=== PATIENT | female | born 1955 | race Caucasian/White ===

== ENCOUNTER 2016-06-27 09:38 | Emergency (ER) | payer MEDICARE, MEDICAID ==
[~2016-06-27] VITALS: Ht 154.9 cm; Wt 82.0 kg
[~2016-06-27 09:38] MED LIST: AMLO2.5T PO; ASPI-110 PO; BLOOMIS; CELE1CAP11 PO; GLIP-157 PO; MECL-62 PO; MELO7.5T4 PO; METF1000 PO; METF500T PO; PRAV40TA2 PO; VENTAER INH
[2016-06-27 09:40] VITALS: BP 176/99; PULSE 113; RESP 16; TEMP 97.9; O2SAT 98
[2016-06-27] MEDS ORDERED: IBUP800T23 PO (10:14)
[2016-06-27] MEDS ORDERED: ROBA500T PO (10:14)
[2016-06-27] MEDS ORDERED: KETOROLAC TROMETHAMINE 60 MG/2 ML (IM) VIAL IM ONE (10:15)
[2016-06-27] MEDS ORDERED: ORPHENADRINE INJ 60 MG/2 ML AMP IM ONE (10:15)
--- NOTE | 2016-06-27 10:15 | PD ---
HPI Chief Complaint: Pain: Acute or Chronic Time Seen by Provider: 10:12 Travel History International Travel<30 days: No Contact w/Intl Traveler<30days: No Traveled to known affect area: No History of Present Illness HPI 61-year-old female presents to the emergency Department with complaint of low back pain since after lifting up her 55 pound nephew. She has history of low back pain. She denies encopresis, incontinence, saddle anesthesias. Denies fever, chills, nausea, vomiting, abdominal pain. Denies paresthesias loss of sensation, decreased range of motion, decreased strength to bilateral lower extremities. Denies IV drug use, cancer. Has not taken any medications or tried any treatments to alleviate her symptoms. Pain is worse on the right. Pain radiates down the back of her right leg. Pain is aggravated with palpation, ambulation, movement. She is also complaining of right shoulder pain which is chronic and requesting a steroid injection, which she says she is due for. Primary care provider is Dr. Stephenson. No known allergies. History of asthma and diabetes. No other modifying factors or associated signs and symptoms. PFSH Past Medical History Hx Anticoagulant Therapy: Yes (ASA) Blood Disorders: No Heart Rhythm Problems: No Cancer: No Cardiovascular Problems: Yes (HTN) High Cholesterol: Yes Chest Pain: Yes Congestive Heart Failure: No Diabetes: Yes Diminished Hearing: No Endocrine: Yes Hypertension: Yes Immune Disorder: No Musculoskeletal: Yes (RIGHT ARM ARTHRITIS ) Neurologic: Yes (VERTIGO THIS VISIT) Psychiatric: No Reproductive: No Respiratory: No Thyroid Disease: No ?: Not Past Surgical History Hysterectomy: Yes Social History Alcohol Use: No Tobacco Use: No Substance Use: No Allergies-Medications (Allergen,Severity, Reaction): Coded Allergies: No Known Allergies (Unverified , 06/19/16) Reported Meds & Prescriptions Reported Meds & Active Scripts Active Ibuprofen 800 Mg Tab 800 Mg PO Q6HR PRN Robaxin (Methocarbamol) 500 Mg Tab 500 Mg PO QID PRN Celecoxib 50 Mg Cap 50 Mg PO BID Meloxicam 7.5 Mg Tab 7.5 Mg PO DAILY Blood Pressure Monitor (Blood Pressure Monitoring) 1 Mis Mis 1 Ea .ROUTE DIRECTED Meclizine (Meclizine HCl) 25 Mg Tab 25 Mg PO Q8H PRN Ventolin Hfa 18 GM Inh (Albuterol Sulfate) 90 Mcg/Act Aer 2 Puff INH Q4-6H PRN Pravastatin 40 Mg Tab 40 Mg PO DAILY Glipizide XL (Glipizide) 5 Mg Marko 5 Mg PO DAILY Take with breakfast or first main meal of the day Metformin (Metformin HCl) 1,000 Mg Tab 1,000 Mg PO BIDPC With meals Metformin (Metformin HCl) 500 Mg Tab 500 Mg PO AC BREAKFAST With a meal Aspirin 81 (Aspirin) 81 Mg Tabdr 81 Mg PO DAILY Amlodipine (Amlodipine Besylate) 2.5 Mg Tab 2.5 Mg PO DAILY Review of Systems Except as stated in HPI: all other systems reviewed are Neg Physical Exam Narrative GENERAL: Well-nourished, well-developed female patient, in no acute distress SKIN: Warm and dry. HEAD: Atraumatic. Normocephalic. EYES: Pupils equal and round. No scleral icterus. No injection or drainage. ENT: Mucosa pink and moist. Airway patent. NECK: Trachea midline. CARDIOVASCULAR: Regular rate. RESPIRATORY: No accessory muscle use. GASTROINTESTINAL: Rounded. MUSCULOSKELETAL: Bilateral lower extremities supple and non-tense with 2+ pedal pulses and sensory intact; with full range of motion and 5/5 strength. DTRs 2+. Active dorsiflexion and extension of bilateral feet. Bilateral straight leg raise is positive for low back pain; right worse than left. Sitting up in bed at 90. No obvious deformities. No clubbing. No cyanosis. No edema. BACK: No midline point tenderness on palpation of the lumbar, thoracic, or cervical spine. Tenderness on palpation of bilateral iliosacral area; right worse than left. No obvious deformities. NEUROLOGICAL: Awake and alert. Oriented 3. No obvious cranial nerve deficits. Motor grossly within normal limits. Normal speech. Moves all extremities. 5/5 strength to all extremities. Sensory intact. PSYCHIATRIC: Appropriate mood and affect; insight and judgment normal. Data Data Last Documented VS Vital Signs Date Time Temp Pulse Resp B/P Pulse Ox O2 Delivery O2 Flow Rate FiO2 06/27/16 09:40 97.9 113 16 176/99 98 Orders Ketorolac Inj (Toradol Inj) (06/27/16 10:15) Orphenadrine Inj (Norflex Inj) (06/27/16 10:15) MDM Medical Decision Making Medical Screen Exam Complete: Yes Emergency Medical Condition: Yes Medical Record Reviewed: Yes Differential Diagnosis Low back strain, sciatica, acute exacerbation of chronic low back pain, muscle spasms Narrative Course 61-year-old female physical examination consistent with low back strain and right-sided sciatica. Heart recheck on physical exam is approximately 90-100 bpm. Toradol and Norflex administered in the ER. Ibuprofen and Robaxin prescribed for home. Patient is medically cleared and stable for discharge. Discussed reasons to return to the emergency department. Instructed patient to follow up with primary care provider. Patient agrees with treatment plan. The patients vital signs are stable and the patient is stable for outpatient follow- up and treatment. Patient discharged home, stable and in no acute distress. Diagnosis Primary Impression: Low back strain Qualified Code: S39.012A - Low back strain, initial encounter Additional Impression: Sciatica Qualified Code: M54.31 - Sciatica of right side Referrals: Primary Care Physician Patient Instructions: General Instructions, Low Back Strain (ED), Sciatica (ED) Departure Forms: Tests/Procedures, Work Release Enter return to work date: Jul 01, 2016 Additional Instructions: Tylenol or ibuprofen as directed and as needed for pain Robaxin as prescribed and as needed for muscle spasms Heating pad and/or ice to affected area to reduce pain Avoid aggravating activities; increase activity as tolerated Follow-up with primary care provider Return to emergency department immediately with worsening of symptoms Med/Other Pt SpecificInfo: Prescription(s) given Scripts Ibuprofen 800 Mg [id number] Mg PO Q6HR PRN (PAIN) #30 TAB Ref 0 Prov:Avelina Rouse 06/27/16 Methocarbamol (Robaxin)500 Mg [id number] Mg PO QID PRN (MUSCLE SPASM) #30 TAB Ref 0 Prov:Avelina Rouse 06/27/16 Disposition: 01 DISCHARGE HOME Condition: Stable Avelina Rouse Jun 27, 2016 10:15 Avelina Rouse Jun 27, 2016 10:15
[2016-07-05] MEDS ORDERED: METF500T PO (13:05)
[2016-07-05] MEDS ORDERED: METF1000 PO (13:05)
[2016-07-16] MEDS ORDERED: GLIP-157 PO (14:38)
[2016-07-16] MEDS ORDERED: TYLE325T PO (14:42)
[2016-07-31] MEDS ORDERED: TRIA40P I-ARTICULR (10:28)
[2016-07-31] MEDS ORDERED: [UNRECOGNIZED DRUG - CODE] (10:28)
[2016-08-13] MEDS ORDERED: FLUC150T PO (14:31)
[2016-08-16] MEDS ORDERED: CELE1CAP11 PO (15:19)
[2016-08-25] MEDS ORDERED: AMLO2.5T PO (15:33)
[2016-10-15] MEDS ORDERED: METF500T PO (12:57)
[2016-10-15] MEDS ORDERED: METF1000 PO (12:57)
== END 2016-06-27 11:02 | disposition home or self-care (01) ==
LOC: NEPB 09:38
DX: S39.012A Strain of muscle, fascia and tendon of lower back, initial encounter (principal); M54.31 Sciatica, right side; E78.00 Pure hypercholesterolemia, unspecified; I10 Essential (primary) hypertension; E11.9 Type 2 diabetes mellitus without complications; Z79.4 Long term (current) use of insulin; Z79.82 Long term (current) use of aspirin
CPT/HCPCS: 96372; 96374; 99283; J1885; J2360

== ENCOUNTER → 2017-05-25 | Emergency (ER) | payer MEDICARE, OTHER ==
[~2017-05-25] VITALS: Ht 154.9 cm; Wt 81.8 kg
[~2017-05-25] MED LIST changes: -ASPI-110 PO; +ASPI1TAB57 PO; +BLOO1KIT; -BLOOMIS; +MAGICADU2 SWISH-SWAL; +MELO7.5T27 PO; -MELO7.5T4 PO; +OMEP10CA PO; +ROBA500T PO; +TYLE325T PO; +VALA500T PO
[2017-05-25 13:30] VITALS: BP 183/100; PULSE 117; RESP 20; TEMP 99; O2SAT 97
[2017-05-25 14:24] LABS: BILIRUBIN, URINE NEG (NEG); BLOOD, URINE NEG (NEG); GLUCOSE,URINE 150 mg/dL (NEG); KETONE, URINE 10 mg/dL (NEG); NITRITE,URINE NEG (NEG); PH, URINE 5.5 (5.0-8.5); SQUAMOUS EPITHELIAL CELL URINE 1 /hpf (0-5); URINE COLOR YELLOW (YELLW/STRAW); URINE LEUKOCYTE ESTERASE NEG (NEG)
--- NOTE | 2017-05-25 14:40 | RADRPT ---
EXAM DATE/TIME: 05/25/2017 14:11 [facility] COMPARISON: CT BRAIN W/O CONTRAST, March 31, 2016, 22:06. INDICATIONS : Dizziness for 1 week RADIATION DOSE: 36.15 CTDIvol (mGy) MEDICAL HISTORY : Hypertension. Diabetes mellitus type 2. SURGICAL HISTORY : Hysterectomy. ENCOUNTER: Initial ACUITY: 1 day PAIN SCALE: 0/10 LOCATION: cranial TECHNIQUE: Multiple contiguous axial images were obtained of the head. Using automated exposure control and adj ustment of the mA and/or kV according to patient size, radiation dose was kept as low as reasonably a chievable to obtain optimal diagnostic quality images. DICOM format image data is available electro nically for review and comparison. FINDINGS: CEREBRUM: The ventricles are normal for age. Mild cerebral atrophy. No evidence of midline shift, mass lesion, hemorrhage or acute infarction. No extra-axial fluid collections are seen. POSTERIOR FOSSA: The cerebellum and brainstem are intact. The 4th ventricle is midline. The cerebellopontine angle i s unremarkable. EXTRACRANIAL: The visualized portion of the orbits is intact. SKULL: The calvaria is intact. No evidence of skull fracture. CONCLUSION: No acute intracranial disease. Conrado Marcum MD on May 25, 2017 at 14:36 Board Certified Radiologist. This report was verified electronically.
[2017-05-25 14:53] LABS: AUTOMATED NEUTROPHIL # 4.2 TH/MM3 (1.8-7.7); BASOPHIL # 0.1 TH/MM3 (0-0.2); BASOPHIL % 0.9 % (0.0-2.0); EOSINOPHIL # 0.2 TH/MM3 (0-0.4); EOSINOPHIL % 2.1 % (0.0-4.0); HEMATOCRIT 37.6 % (35.0-46.0); HEMOGLOBIN 13.5 GM/DL (11.6-15.3); LYMPH % 34.1 % (9.0-44.0); LYMPHOCYTE # 2.5 TH/MM3 (1.0-4.8); MEAN CELL VOLUME 80.9 FL (80.0-100.0); MEAN CORPUSCULAR HEMOGLOBIN 28.9 PG (27.0-34.0); MEAN CORPUSCULAR HGB CONC 35.7 % (32.0-36.0); MEAN PLATELET VOLUME 8.5 FL (7.0-11.0); MONOCYTE # 0.4 TH/MM3 (0-0.9); NEUT % 56.9 % (16.0-70.0); PLATELET COUNT 241 TH/MM3 (150-450); RED BLOOD COUNT 4.65 MIL/MM3 (4.00-5.30); RED CELL DISTRIBUTION WIDTH 13.5 % (11.6-17.2); WHITE BLOOD COUNT 7.4 TH/MM3 (4.0-11.0)
[2017-05-25 15:11] LABS: ALBUMIN 3.9 GM/DL (3.4-5.0); ALT (GPT) 72 U/L (10-53); AST (GOT) 63 U/L (15-37); BICARBONATE 27.3 MEQ/L (21.0-32.0); BLOOD UREA NITROGEN 12 MG/DL (7-18); CALCIUM 9.4 MG/DL (8.5-10.1); CHLORIDE 102 MEQ/L (98-107); CREATININE 0.66 MG/DL (0.50-1.00); GLOMERULAR FILTRATION RATE 91 ML/MIN (>89); GLUCOSE,RANDOM 194 MG/DL (74-106); MAGNESIUM 1.3 MG/DL (1.5-2.5); SODIUM (NA) 139 MEQ/L (136-145)
[2017-05-25 15:15] LABS: ALKALINE PHOSPHATASE 94 U/L (45-117); TOTAL BILIRUBIN ADULT 0.5 MG/DL (0.2-1.0); TROPONIN I LESS THAN 0.02 NG/ML (0.02-0.05)
--- NOTE | 2017-05-25 15:46 | PD ---
HPI Chief Complaint: Dizziness Time Seen by Provider: 15:34 Travel History International Travel<30 days: No Contact w/Intl Traveler<30days: No Traveled to known affect area: No History of Present Illness HPI 61-year-old female presents to the emergency Department with complaint of dizziness 1 week. Has history of vertigo times one year. Vertigo is related to cerumen impactions. She was just seen in April by Dr. Gill and her ears were cleaned out. She does take meclizine for her vertigo and has taken it for her current dizziness and says it has helped "a little bit." Dizziness is worse with movement and position changes. Reports occasional headaches, denies headache at this time. Denies syncopal or near syncope episodes. Denies chest pain, shortness of breath. Vomiting 1 time on Wednesday. Denies heart palpitations. Has taken meclizine for symptom management. Aggravated with movement position changes. Better at rest. Symptoms are [id number] in severity. Primary care provider is Dr. Stephenson. No known allergies. History of diabetes mellitus and is on metformin, hypertension, vertigo. PFSH Past Medical History Hx Anticoagulant Therapy: Yes (ASA) Blood Disorders: No Heart Rhythm Problems: No Cancer: No Cardiovascular Problems: Yes (HTN) High Cholesterol: Yes Chest Pain: Yes Congestive Heart Failure: No Diabetes: Yes Patient Takes Glucophage: Yes Diminished Hearing: No Endocrine: Yes Gastrointestinal Disorders: No Hypertension: Yes Immune Disorder: No Musculoskeletal: Yes (RIGHT ARM ARTHRITIS ) Neurologic: Yes (VERTIGO THIS VISIT) Psychiatric: No Reproductive: No Respiratory: No Thyroid Disease: No Tetanus Vaccination: < 5 Years Past Surgical History Hysterectomy: Yes Other Surgery: Yes (, HYTERECTOMY) Social History Alcohol Use: No Tobacco Use: No Substance Use: No Allergies-Medications (Allergen,Severity, Reaction): Coded Allergies: No Known Allergies (Unverified Adverse Reaction, Unknown, 05/25/17) Reported Meds & Prescriptions Reported Meds & Active Scripts Active Omeprazole 10 Mg Cap 20 Mg PO DAILY Pravastatin 40 Mg Tab 40 Mg PO DAILY Amlodipine (Amlodipine Besylate) 2.5 Mg Tab 2.5 Mg PO DAILY Glipizide XL (Glipizide) 5 Mg Marko 5 Mg PO DAILY Take with breakfast or first main meal of the day Meclizine (Meclizine HCl) 25 Mg Tab 25 Mg PO Q8H PRN Ventolin Hfa 18 GM Inh (Albuterol Sulfate) 90 Mcg/Act Aer 2 Puff INH Q4-6H PRN Aspirin 81 (Aspirin) 81 Mg Tabdr 81 Mg PO DAILY Reported Metformin (Metformin HCl) 500 Mg Tab 1,500 Mg PO HS With a meal Metformin (Metformin HCl) 1,000 Mg Tab 1,000 Mg PO DAILY@0600 With a meal Review of Systems Except as stated in HPI: all other systems reviewed are Neg Physical Exam Narrative GENERAL: Well-nourished, well-developed patient, in no acute distress SKIN: Warm and dry. HEAD: Atraumatic. Normocephalic. No facial droop noted. Tongue midline. EYES: Pupils equal and round at 3 mm with brisk reaction. No scleral icterus. No injection or drainage. PERRLA. EOMI. EARS: Bilateral pinnae and external canals appear within normal limits. Bilateral tympanic membranes without erythema, dullness or perforation. ENT: Mucosa pink and moist. Airway patent. NECK: Trachea midline. No lymphadenopathy. CARDIOVASCULAR: Regular rate and rhythm. No murmur appreciated. RESPIRATORY: No accessory muscle use. Clear to auscultation. Breath sounds equal bilaterally. GASTROINTESTINAL: Abdomen soft, non-tender, nondistended. Hepatic and splenic margins not palpable. Bowel sounds are active 4 quadrants. MUSCULOSKELETAL: No obvious deformities. No clubbing. No cyanosis. No edema. NEUROLOGICAL: Awake and alert. Oriented 3. No obvious cranial nerve deficits. Motor grossly within normal limits. Normal speech. No ataxia. No mid -line drift. Moves all extremities. 5/5 strength to all extremities. PSYCHIATRIC: Appropriate mood and affect; insight and judgment normal. Data Data Last Documented VS Vital Signs Date Time Temp Pulse Resp B/P (MAP) Pulse Ox O2 Delivery O2 Flow Rate FiO2 05/25/17 16:06 115 16 145/95 (112) 105 16 133/85 (101) 05/25/17 13:30 99.0 97 Room Air Orders Orders Electrocardiogram (05/25/17 13:40) Complete Blood Count With Diff (05/25/17 13:40) Comprehensive Metabolic Panel (05/25/17 13:40) Magnesium (Mg) (05/25/17 13:40) Ckmb (Isoenzyme) Profile (05/25/17 13:40) Troponin I (05/25/17 13:40) Act Partial Throm Time (Ptt) (05/25/17 13:40) Prothrombin Time / Inr (Pt) (05/25/17 13:40) Urinalysis - C+S If Indicated (05/25/17 13:40) Ct Brain W/O Iv Contrast(Rout) (05/25/17 13:40) Orthostatic Vital Signs (05/25/17 15:46) Ed Discharge Order (05/25/17 18:51) Labs Laboratory Tests Test 05/25/17 14:05 05/25/17 14:32 Urine Color YELLOW Urine Turbidity CLEAR Urine pH 5.5 Urine Specific [place] 1.022 Urine Protein TRACE mg/dL Urine Glucose (UA) 150 mg/dL Urine Ketones 10 mg/dL Urine Occult Blood NEG Urine Nitrite NEG Urine Bilirubin NEG Urine Urobilinogen LESS THAN 2.0 MG/DL Urine Leukocyte Esterase NEG Urine RBC 1 /hpf Urine WBC 1 /hpf Urine Squamous Epithelial Cells 1 /hpf Microscopic Urinalysis Comment CULT NOT INDICATED White Blood Count 7.4 TH/MM3 Red Blood Count 4.65 MIL/MM3 Hemoglobin 13.5 GM/DL Hematocrit 37.6 % Mean Corpuscular Volume 80.9 FL Mean Corpuscular Hemoglobin 28.9 PG Mean Corpuscular Hemoglobin Concent 35.7 % Red Cell Distribution Width 13.5 % Platelet Count 241 TH/MM3 Mean Platelet Volume 8.5 FL Neutrophils (%) (Auto) 56.9 % Lymphocytes (%) (Auto) 34.1 % Monocytes (%) (Auto) 6.0 % Eosinophils (%) (Auto) 2.1 % Basophils (%) (Auto) 0.9 % Neutrophils # (Auto) 4.2 TH/MM3 Lymphocytes # (Auto) 2.5 TH/MM3 Monocytes # (Auto) 0.4 TH/MM3 Eosinophils # (Auto) 0.2 TH/MM3 Basophils # (Auto) 0.1 TH/MM3 CBC Comment DIFF FINAL Differential Comment Prothrombin Time 11.3 SEC Prothromb Time International Ratio 1.1 RATIO Activated Partial Thromboplast Time 28.7 SEC Blood Urea Nitrogen 12 MG/DL Creatinine 0.66 MG/DL Random Glucose 194 MG/DL Total Protein 8.0 GM/DL Albumin 3.9 GM/DL Calcium Level 9.4 MG/DL Magnesium Level 1.3 MG/DL Alkaline Phosphatase 94 U/L Aspartate Amino Transf (AST/SGOT) 63 U/L Alanine Aminotransferase (ALT/SGPT) 72 U/L Total Bilirubin 0.5 MG/DL Sodium Level 139 MEQ/L Potassium Level 3.8 MEQ/L Chloride Level 102 MEQ/L Carbon Dioxide Level 27.3 MEQ/L Anion Gap 10 MEQ/L Estimat Glomerular Filtration Rate 91 ML/MIN Total Creatine Kinase 84 U/L Troponin I LESS THAN 0.02 NG/ML MDM Medical Decision Making Medical Screen Exam Complete: Yes Emergency Medical Condition: Yes Medical Record Reviewed: Yes Differential Diagnosis Dizziness, vertigo, arrhythmia, electrolyte imbalance Narrative Course 61-year-old female with history of vertigo with dizziness times one week. Denies chest pain, shortness of breath. CBC, CMP, troponin, coags, urinalysis, CT head ordered in triage. Orthostatic vital signs ordered. 1742: CBC unremarkable. Random glucose 194, AST 63, ALT 72, magnesium 1.3, otherwise CMP unremarkable. Troponin less than 0.02. Total CPK 84. Troponin less than 0.02. Urinalysis without signs of infection. CT head concludes: Head CT 05/25/17 1340 Signed Impressions: Service Date/Time: Thursday, May 25, 2017 14:11 - CONCLUSION: No acute intracranial disease. Conrado Marcum MD Discussed labs and CT findings with the patient. [id number]: Coags Unremarkable. Dr. Jung agrees with discharge. Patient has meclizine at home. Instructed to follow-up with Dr. Gill. Instructed patient to follow up with primary care provider. Patient verbalizes understanding and agreement with treatment plan. Patient is medically cleared and stable for discharge. Discussed reasons to return to the emergency department. Patient agrees with treatment plan. The patients vital signs are stable and the patient is stable for outpatient follow-up and treatment. Patient discharged home, stable and in no acute distress. Diagnosis Primary Impression: Dizziness Referrals: Architecture Consultant Neurologist Primary Care Physician Patient Instructions: Dizziness (ED), General Instructions, Vertigo (ED) Additional Instructions: Meclizine as directed and as needed for dizziness Avoid aggravating activity Moves slowly from standing to sitting positions, or other positions that aggravate dizziness Follow-up with neurologist Follow-up with seafood technology specialist Follow-up with primary care provider Return to the emergency department immediately for worsening of symptoms Med/Other Pt SpecificInfo: No Change to Meds, No Meds Exist/No RX given Disposition: 01 DISCHARGE HOME Condition: Stable Avelina Rouse May 25, 2017 15:46
[2017-05-25 16:06] VITALS: BP_SYST 133; BP_SYST 145; BP_DIAS 85; BP_DIAS 95; RESP 16
[2017-05-25 18:48] LABS: INTERNATIONAL NORMALIZED RATIO 1.1 RATIO; PROTHROMBIN TIME - PATIENT 11.3 SEC (9.8-11.6)
--- NOTE | 2017-05-26 09:46 | EKG ---
Date Performed: 05/25/2017 Time Performed: 14:37:24 PTAGE: 61 years EKG: SINUS TACHYCARDIA POSSIBLE LEFT ATRIAL ENLARGEMENT BORDERLINE LEFT AXIS DEVIATION LOW QRS V OLTAGE IN PRECORDIAL LEADS PATTERN CONSISTENT WITH PULMONARY DISEASE NONSPECIFIC T-WAVE ABNORMALITY A BNORMAL ECG Since the prior tracing, there has been no significant change PREVIOUS TRACING : 03/31/2016 19.16 DOCTOR: Milton Stephenson Interpretating Date/Time 05/26/2017 09:44:13
== END | disposition home or self-care (01) ==
LOC: NEPD 13:28
DX: R42 Dizziness and giddiness (principal); E11.9 Type 2 diabetes mellitus without complications; E78.00 Pure hypercholesterolemia, unspecified; I10 Essential (primary) hypertension; R00.0 Tachycardia, unspecified; R94.31 Abnormal electrocardiogram [ECG] [EKG]; Z79.84 Long term (current) use of oral hypoglycemic drugs; Z79.899 Other long term (current) drug therapy
CPT/HCPCS: 70450; 80053; 81001; 82550; 83735; 84484; 85025; 85610; 85730; 93005; 99285

== ENCOUNTER 2017-07-10 18:49 | Emergency (ER) | payer MEDICARE, MEDICAID ==
[~2017-07-10] VITALS: Ht 165.1 cm; Wt 75.0 kg
[~2017-07-10 18:49] MED LIST changes: -BLOO1KIT; -CELE1CAP11 PO; -MAGICADU2 SWISH-SWAL; -MELO7.5T27 PO; -ROBA500T PO; -TYLE325T PO; -VALA500T PO
[2017-07-10 18:58] VITALS: BP 161/89; PULSE 111; RESP 16; TEMP 98.5; O2SAT 98
[2017-07-10] MEDS ORDERED: NAPR500T2 PO (19:26)
--- NOTE | 2017-07-10 19:30 | PD ---
HPI Chief Complaint: Pain: Acute or Chronic Time Seen by Provider: 19:17 Travel History International Travel<30 days: No Contact w/Intl Traveler<30days: No Traveled to known affect area: No History of Present Illness HPI 62-year-old female presents for evaluation of left knee pain. She reports that 6 days ago she began walking 1 mile on a daily basis for exercise. Exercise like this is new for her. She reports that yesterday she walked 1 mile and today woke up with left knee pain. The pain is an aching pain in her left knee which is reproduced when walking. She denies any trauma. She did not fall. He denies any numbness or tingling or weakness. She has no other complaints at this time. PFSH Past Medical History Hx Anticoagulant Therapy: Yes (ASA) Blood Disorders: No Heart Rhythm Problems: No Cancer: No Cardiovascular Problems: Yes (HTN) High Cholesterol: Yes Chest Pain: Yes Congestive Heart Failure: No Diabetes: Yes Patient Takes Glucophage: Yes Diminished Hearing: No Endocrine: Yes Gastrointestinal Disorders: No Hypertension: Yes Immune Disorder: No Implanted Vascular Access Dvce: No Musculoskeletal: Yes (RIGHT ARM ARTHRITIS ) Neurologic: Yes (VERTIGO THIS VISIT) Psychiatric: No Reproductive: No Respiratory: No Immunizations Current: Yes Thyroid Disease: No Tetanus Vaccination: < 5 Years Influenza Vaccination: Yes Past Surgical History Hysterectomy: Yes Other Surgery: Yes (, HYTERECTOMY) Social History Alcohol Use: No Tobacco Use: No Substance Use: No Allergies-Medications (Allergen,Severity, Reaction): Coded Allergies: No Known Allergies (Unverified Adverse Reaction, Unknown, 07/10/17) Reported Meds & Prescriptions Reported Meds & Active Scripts Active Naproxen 500 Mg Tab 500 Mg PO BID 10 Days Omeprazole 10 Mg Cap 20 Mg PO DAILY Pravastatin 40 Mg Tab 40 Mg PO DAILY Amlodipine (Amlodipine Besylate) 2.5 Mg Tab 2.5 Mg PO DAILY Glipizide XL (Glipizide) 5 Mg Marko 5 Mg PO DAILY Take with breakfast or first main meal of the day Meclizine (Meclizine HCl) 25 Mg Tab 25 Mg PO Q8H PRN Ventolin Hfa 18 GM Inh (Albuterol Sulfate) 90 Mcg/Act Aer 2 Puff INH Q4-6H PRN Aspirin 81 (Aspirin) 81 Mg Tabdr 81 Mg PO DAILY Reported Metformin (Metformin HCl) 500 Mg Tab 1,500 Mg PO HS With a meal Metformin (Metformin HCl) 1,000 Mg Tab 1,000 Mg PO DAILY@0600 With a meal Review of Systems Musculoskeletal: Positive: Pain, No: Limited ROM Skin: Positive Other (Denies open wounds) Physical Exam Narrative GENERAL: Well-developed well-nourished female no acute distress SKIN: Warm and dry. CARDIOVASCULAR: Regular rate and rhythm. No murmur appreciated. RESPIRATORY: No accessory muscle use. Clear to auscultation. Breath sounds equal bilaterally. GASTROINTESTINAL: Abdomen soft, non-tender, nondistended. Hepatic and splenic margins not palpable. MUSCULOSKELETAL: No obvious deformities. Mild tenderness to palpation to the inferior aspect of left knee. There is crepitus in the left knee with flexion and extension. There is no joint effusion. Range of motion is preserved. Distal pulses and sensation are intact. NEUROLOGICAL: Awake and alert. No obvious cranial nerve deficits. Motor grossly within normal limits. Normal speech. Data Data Last Documented VS Vital Signs Date Time Temp Pulse Resp B/P (MAP) Pulse Ox O2 Delivery O2 Flow Rate FiO2 07/10/17 18:58 98.5 111 16 161/89 (113) 98 Orders Orders Crutches (07/10/17 19:26) Braden Bandage (07/10/17 19:26) Ed Discharge Order (07/10/17 19:26) MDM Medical Decision Making Medical Screen Exam Complete: Yes Emergency Medical Condition: Yes Medical Record Reviewed: Yes Differential Diagnosis Left knee strain, sprain, tendinitis, osteoarthritis Narrative Course I suspect left knee strain versus tendinitis secondary from her new physical activity. There is no evidence of bony abnormality that would warrant emergent x-ray imaging. She likely has a degree of osteoarthritis in the left knee as well as there is crepitus with range of motion. Recommended decreasing activities that exacerbate the pain following with primary care physician or sports medicine physician. She will be discharged with crutches and Braden wrap as well as prescription for naproxen. Diagnosis Primary Impression: Strain of left knee Additional Instructions: Avoid activities that exacerbate the pain. Naproxen with meals. Ice pack several times a day 20 minutes at a time. Follow-up with primary care physician in 1 to 2 weeks. Return for any emergent medical conditions. Med/Other Pt SpecificInfo: Prescription(s) given, Orthopedic Instructions Scripts Naproxen (Naproxen) 500 Mg Tab 500 MG PO BID for 10 Days, #20 TAB 0 Refills Prov: Kendall Almonte MD 07/10/17 Disposition: 01 DISCHARGE HOME Condition: Stable Adnrade Toro Jul 10, 2017 19:30
== END 2017-07-10 20:40 | disposition home or self-care (01) ==
LOC: NEPD 18:49
DX: S83.92XA Sprain of unspecified site of left knee, initial encounter (principal); I10 Essential (primary) hypertension; E78.00 Pure hypercholesterolemia, unspecified; E11.9 Type 2 diabetes mellitus without complications; M19.90 Unspecified osteoarthritis, unspecified site; Y93.01 Activity, walking, marching and hiking; Z79.82 Long term (current) use of aspirin; Z79.899 Other long term (current) drug therapy
CPT/HCPCS: 99283; E0113